=== PATIENT | female | born 1985 | race Caucasian/White ===

== ENCOUNTER 2016-10-08 21:37 | Emergency (ER) | payer OTHER ==
--- NOTE | 2016-10-08 23:28 | ED NURSING NOTES ---
Clinical Report - Nurses [facility] [address] [place] [address] 10/08/2016 21:38 Patient: SAMMIE WARD DISPOSITION / DISCHARGE ( notified registration prior to leaving). --23:27 Malgorzata Suarez R.N. 23:27 10/08/16. The patient left the Emergency Department before triage. She notified the ED staff prior to leaving the department. She left the Emergency Department ambulatory and via private vehicle. --04:50 Malgorzata Suarez R.N. Locked/Released at 10/09/2016 4:50 by Malgorzata Suarez R.N.
--- NOTE | 2016-10-08 23:28 | ED NURSING NOTES ---
Clinical Report - Nurses [facility] [address] [place] [address] 10/08/2016 21:38 Patient: SAMMIE WARD DISPOSITION / DISCHARGE ( notified registration prior to leaving). --23:27 Malgorzata Suarez R.N. 23:27 10/08/16. The patient left the Emergency Department before triage. She notified the ED staff prior to leaving the department. She left the Emergency Department ambulatory and via private vehicle. --04:50 Malgorzata Suarez R.N. Locked/Released at 10/09/2016 4:50 by Malgorzata Suarez R.N.
--- NOTE | 2016-10-09 04:50 | ED MED RECONCILIATION SUMMARY ---
Patient: SAMMIE WARD Medication Reconciliation Report [facility] VisitID: [id number] [address] [place] [place] [address] 31y, F Registration Date/Time: 10/08/2016 Weight: (not available) Height/Length: (not available) BMI: (not available) ALLERGIES: The patient's Home Medications are listed below: Not obtained. The source(s) of the original Home Medication information: Not obtained. The following Medications were given to the patient in the Emergency Department: None. The following Medications were prescribed to the patient: None.
--- NOTE | 2016-10-09 04:50 | ED MAR SUMMARY ---
..... Medication Administration Record [facility] [address] [place], [place] [id number] Patient: SAMMIE WARD [place] Visit ID: [id number] 31y, F Weight: (not available) Height/Length: (not available) BMI: (not available) ALLERGIES:
--- NOTE | 2016-10-09 04:50 | ED MAR SUMMARY ---
..... Medication Administration Record [facility] [address], [place] [id number] Patient: SAMMIE WARD [place] Visit ID: [id number] 31y, F Weight: (not available) Height/Length: (not available) BMI: (not available) ALLERGIES:
--- NOTE | 2016-10-09 04:50 | ED MED RECONCILIATION SUMMARY ---
Patient: SAMMIE WARD Medication Reconciliation Report [facility] VisitID: [id number] [address] [place] [address] 31y, F Registration Date/Time: 10/08/2016 Weight: (not available) Height/Length: (not available) BMI: (not available) ALLERGIES: The patient's Home Medications are listed below: Not obtained. The source(s) of the original Home Medication information: Not obtained. The following Medications were given to the patient in the Emergency Department: None. The following Medications were prescribed to the patient: None.
== END 2016-10-08 23:27 | disposition left against medical advice (07) ==
LOC: ED SRH 21:37
DX: Z53.29 Procedure and treatment not carried out because of patient's decision for other reasons (principal)